=== PATIENT | male | born 1995 | race Caucasian/White ===

== ENCOUNTER → 2016-12-02 | Outpatient (CLI) | payer OTHER ==
[2016-12-02 19:52] LABS: BUN 14 mg/dL (7-18)
[2016-12-02 20:09] LABS: GFR (ESTIMATED) 121 ML/MIN (>60)
== END ==
LOC: LAB 16:44
PROVIDERS: Physician Assistant
DX: R00.2 Palpitations (principal); R00.0 Tachycardia, unspecified